=== PATIENT | female | born 1955 | race Caucasian/White ===

== ENCOUNTER 2016-10-18 17:57 | Emergency (ER) | payer OTHER ==
[2016-10-18 18:24] LABS: BASOPHIL 0.3 % (0-2); EOSINOPHIL 1.9 % (0-5); HCT 39.9 % (37.0-47.0); HGB 13.4 g/dl (12.5-16.0); LYMPHOCYTE 34.5 % (15-48); MCH 29.7 pg (25.0-31.0); MCHC 33.6 g/dL (32.0-36.0); MCV 88.5 fL (78.0-100.0); MPV 9.6 fL (6.0-9.5); NEUTROPHIL 55.3 % (41-80); PLT 230 K/uL (150-400); RBC 4.51 M/uL (4.20-5.40); RDW 13.3 % (11.5-14.0); WBC 5.9 K/uL (4.0-10.5)
[2016-10-18 18:27] LABS: INR 0.91 (0.9-1.2); PROTHROMBIN TIME 11.9 SECONDS (11.7-14.0); PTT 24.8 SECONDS (23.2-31.4)
[2016-10-18 18:35] LABS: CKMB 2.01 ng/mL (0.97-4.94); MYOGLOBIN 28 ng/mL (26-65); PRO-BNP 66 pg/mL (0-125); TROPONIN T < 0.010 ng/mL
[2016-10-18 18:36] LABS: ALBUMIN 4.8 g/dL (3.4-4.8); BILIRUBIN - TOTAL 0.2 mg/dL (0.1-1.0); CREATININE 0.8 mg/dL (0.5-1.0); GLOBULIN (CALCULATION) 2.5 g/dL (2.2-4.2); MAGNESIUM 2.15 mg/dL (1.40-2.10); POTASSIUM 3.7 mmol/L (3.5-5.1); TOTAL PROTEIN 7.3 g/dL (6.4-8.3)
== END 2016-10-18 19:39 | disposition home or self-care (01) ==
LOC: FER 17:57
PROVIDERS: Internal Medicine
DX: I25.10 Atherosclerotic heart disease of native coronary artery without angina pectoris (principal); K21.9 Gastro-esophageal reflux disease without esophagitis; I11.9 Hypertensive heart disease without heart failure; I25.2 Old myocardial infarction; E03.9 Hypothyroidism, unspecified; E78.5 Hyperlipidemia, unspecified; Z98.61 Coronary angioplasty status
CPT/HCPCS: 36415; 71010; 80053; 82550; 82553; 83735; 83874; 83880; 84484; 85025; 85610; 85730; 93005